=== PATIENT | female | born 1980 | race Caucasian/White ===

== ENCOUNTER 2017-07-27 19:36 | Inpatient (IN) | payer BC, OTHER ==
[~2017-07-27] VITALS: Ht 160 cm; Wt 98.4 kg
[~2017-07-27 19:36] MED LIST: ADVIL COLD &1 TABLET PO; ALEVE220 MG PO; CIPRO250 MG PO
[2017-07-27 19:55] VITALS: BP 117/69
[2017-07-27 21:02] LABS: EOSINOPHIL (%) 0.4 % (0-5); EOSINOPHIL COUNT 0.1 K/uL (0-0.3); HEMATOCRIT 33.9 % (36.0-46.0); IMMATURE GRANULOCYTE (%) 1.2 % (0.0-0.7); IMMATURE GRANULOCYTE COUNT 0.2 K/uL; INSTRUMENT ABS NEUTROPHIL CT 10.3 K/uL; LYMPHOCYTE COUNT 2.2 K/uL (1.0-2.8); MCH 30.8 PG (29.0-34.0); MCHC 33.6 G/DL (30.0-36.0); MCV 91.6 FL (83-99); MEAN PLAT.VOLUME 11.1 uM^3 (9.5-12.4); MONOCYTE (%) 6.5 % (3-12); MONOCYTE COUNT 0.9 K/uL (0-0.8); NEUTROPHIL (%) 75.7 % (45-76); NEUTROPHIL COUNT 10.3 K/uL (1.8-6.4); PLATELET COUNT 219 K/uL (156-360); RBC DIS.WIDTH-CV 13.7 % (11.8-14.6); RBC DIS.WIDTH-SD 46.1 % (39-53); WHITE BLOOD COUNT 13.6 K/uL (4.1-10.2)
[2017-07-27 21:44] VITALS: BP 113/69
[2017-07-27 22:53] VITALS: BP 114/72
[2017-07-27 23:50] VITALS: BP 117/70
[2017-07-28] VITALS (14 sets, daily range): BP systolic 87–134; BP diastolic 51–89
[2017-07-29 03:04] VITALS: BP 97/41
[2017-07-29 07:37] LABS: EOSINOPHIL (%) 0.5 % (0-5); EOSINOPHIL COUNT 0.1 K/uL (0-0.3); HEMATOCRIT 23.2 % (36.0-46.0); IMMATURE GRANULOCYTE COUNT 0.1 K/uL; INSTRUMENT ABS NEUTROPHIL CT 9.4 K/uL; LYMPHOCYTE COUNT 2.5 K/uL (1.0-2.8); MCH 30.2 PG (29.0-34.0); MCHC 32.3 G/DL (30.0-36.0); MCV 93.5 FL (83-99); MEAN PLAT.VOLUME 11.1 uM^3 (9.5-12.4); MONOCYTE (%) 7.1 % (3-12); MONOCYTE COUNT 0.9 K/uL (0-0.8); NEUTROPHIL (%) 72.1 % (45-76); NEUTROPHIL COUNT 9.4 K/uL (1.8-6.4); PLATELET COUNT 156 K/uL (156-360); RBC DIS.WIDTH-SD 47.4 % (39-53); RED BLOOD COUNT 2.48 M/uL (3.80-5.20); WHITE BLOOD COUNT 13.1 K/uL (4.1-10.2)
[2017-07-30 07:53] VITALS: BP 114/76
[2017-07-30] MEDS ORDERED: ENDOCET 5-3251 EACH PO (07:59)
[2017-07-30] MEDS ORDERED: IBUPROFEN800 MG PO (07:59)
[2017-07-30] MEDS ORDERED: ASCORBIC ACID500 M3 PO (07:59)
[2017-07-30] MEDS ORDERED: FERROUS SULFAT325 MG PO (07:59)
== END 2017-07-30 16:45 | disposition home or self-care (01) | DRG 765 ==
LOC: LDRP-OP 19:36 → 2WEST 19:37
PROVIDERS: Advanced Practice Midwife; Obstetrics & Gynecology
DX: O76 Abnormality in fetal heart rate and rhythm complicating labor and delivery (principal); O42.02 Full-term premature rupture of membranes, onset of labor within 24 hours of rupture; O75.89 Other specified complications of labor and delivery; O99.02 Anemia complicating childbirth; D62 Acute posthemorrhagic anemia; O99.214 Obesity complicating childbirth; E66.9 Obesity, unspecified; O69.81X0 Labor and delivery complicated by cord around neck, without compression, not applicable or unspecified; O99.334 Smoking (tobacco) complicating childbirth; F17.200 Nicotine dependence, unspecified, uncomplicated; Z68.38 Body mass index [BMI] 38.0-38.9, adult; Z30.2 Encounter for sterilization; Z3A.39 39 weeks gestation of pregnancy; Z37.0 Single live birth
CPT/HCPCS: 74000; 85025; 86850; 86900; 86901; 88302; C1755; G0378; J0456; J0690; J1885; J2210; J2274; J2405; J2590; J7120